=== PATIENT | female | born 1975 | race Caucasian/White ===

== ENCOUNTER 2023-09-22 10:30 | Outpatient (AMB) | payer OTHER, SELFPAY ==
--- NOTE | 2023-09-22 10:36 | MHC.OFFWIV ---
Intake Vital Signs 09/22/23 10:37 Height 5 ft 5 in Weight 183 lb 4 oz BMI 30.5 BP 130/78 Blood Pressure Location Lt brachial Position Sitting Pulse 65 Pulse Source Pulse Oximeter Temp 98.4 F Temp Source Oral Pulse Oximetry (%) 99 Oxygen Delivery Method Room Air Intake Visit Reasons: EP belly button infection 3-4 days (lobby) Intake Note: pt says her stomach was hurt a few days ago and she noticed a clear drainage yesterday and today she today she a thick pus oozing out of her belly button Patient Tobacco Use Status: Former Tobacco user Allergies Latex Allergy (Unknown, Uncoded 09/22/23 10:40) Unknown Nuts Allergy (Unknown, Uncoded 09/22/23 10:40) Unknown pectin Allergy (Unknown, Uncoded 09/22/23 10:40) Unknown HPI HPI Comments History of Present Illness Details 48-year-old female who presents today complaining of discharge erythema her umbilicus she has [facility] Social History (Updated 04/09/22 @ 14:01 by TABITHA Cronin) Housing: House Alcohol intake: never Patient Tobacco Use Status: Former Tobacco user e-Cigarette/Vaping Use: Never Used Second Hand Smoke Exposure: No service: No Current occupational status: employed Current occupation: Clinical application analis Cognitive needs: No Hearing needs: No Vision needs: No Review of Systems Const All systems reviewed & are unremarkable except as noted in HPI and below Physical Exam Vital Signs: Last Vital Signs Temp 98.4 F 09/22/23 10:37 Pulse 65 09/22/23 10:37 BP 130/78 09/22/23 10:37 Pulse Ox 99 09/22/23 10:37 Oxygen Delivery Method Room Air 09/22/23 10:37 BMI result Body Mass Index 30.5 Skin Rashes: rashes noted (Erythema and discharge inside her umbilicus) Assessment & Plan Assessment & Plan (1) Skin infection: Code(s): L08.9 - Local infection of the skin and subcutaneous tissue, unspecified Plan: I sent a culture of the discharge. She will be put on cephalexin for the next 7 days. We will call her after the culture returns Plan See plan Orders: Orders Routine Culture w Gram Stain Today L08.9 - Local infection of the skin and subcutaneous tissue, unspecified Medications: New cephalexin 500 mg PO BID 14 caps 0RF 7 days Coding Level of Care Code Est Pt Level 3 (73732) Diagnoses Skin infection L08.9
[2023-09-22 10:37] VITALS: BP 130/78; PULSE 65; TEMP 36.9; O2SAT 99; BMI 30.5
== END 2023-09-22 11:40 | disposition home or self-care (01) ==
PROVIDERS: PCP Internal Medicine; Visit Provider Physician Assistant Medical
DX: L08.9 Local infection of the skin and subcutaneous tissue, unspecified (principal)
CPT/HCPCS: 99213

== ENCOUNTER 2023-09-22 13:48 | Outpatient (REF) | payer OTHER, SELFPAY | END 2023-09-22 13:49 | disposition home or self-care (01) | LOC: HO.LNP 13:48 | PROVIDERS: Visit Provider Physician Assistant Medical | DX: L08.9 Local infection of the skin and subcutaneous tissue, unspecified (principal) | CPT/HCPCS: 87070; 87205 ==

== ENCOUNTER 2024-01-19 09:23 | Outpatient (AMB) | payer OTHER, SELFPAY ==
--- NOTE | 2024-01-19 09:25 | A.OFFVIS_ITS ---
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 She generally healthy without any major cardiac issues. She states that she has been taking methylphenidate for many years. For this reason, she apparently had an EKG performed a few months back and that had raised a concern of QT prolongation. Hence she is referred here. Otherwise, patient does not have any known cardiac problems and there is no family history of any inherited cardiomyopathy or long QT syndrome or sudden cardiac . Patient herself has no cardiac symptoms. [facility] Family History (Updated 01/19/24 @ 09:30 by Sofia Cast CMA) Maternal Aunt Heart disease Social History (Updated 01/19/24 @ 09:30 by Sofia Cast CMA) Housing: House Alcohol intake: current Comment: Social Patient Tobacco Use Status: Former Tobacco user e-Cigarette/Vaping Use: Never Used Second Hand Smoke Exposure: No service: No Current occupational status: employed Current occupation: Clinical application analis Cognitive needs: No Hearing needs: No Vision needs: No Review of Systems Const Denies chills, Denies daytime sleepiness, Denies fatigue, Denies fever(s), Denies poor appetite, Denies snoring, Denies stops breathing during sleep, Denies weakness, Denies weight gain and Denies weight loss Eyes Denies loss of vision ENT Denies dizziness and Denies hearing loss Card Denies chest pain, Denies irregular heart rhythm, Denies claudication, Denies leg edema, Denies lightheadedness, Denies palpitations, Denies dyspnea on exertion and Denies orthopnea Resp Denies cough, Denies excessive phlegm production, Denies dyspnea on exertion, Denies snoring and Denies wheezing GI Denies abdominal pain, Denies hematochezia, Denies change in bowel habits, Denies nausea and Denies vomiting Denies urinary frequency and Denies dysuria Musc Denies arthralgias, Denies muscle weakness, Denies numbness and Denies other Skin/Breast Denies nail changes and Denies rash Neuro Denies Abnormal speech present, Denies dizziness, Denies loss of vision, Denies memory loss, Denies numbness and Denies weakness Psych Denies depression and Denies memory loss Endo Denies fatigue and Denies palpitations Tyler/Lymph Denies easy bruising Aller/Immun Denies wheezing Physical Exam Vital Signs: Last Vital Signs Pulse 73 01/19/24 09:27 BP 120/84 01/19/24 09:27 BMI result Body Mass Index 30.3 Const General: comfortable and no acute distress Orientation/consciousness: patient oriented x3 HEENT Other: Unremarkable Head: Yes normal to inspection Neck Neck: Yes normal visual inspection Chest Chest palpation & inspection: normal inspection of the chest Resp Auscultation: clear to auscultation bilaterally Cardio Palpation: normal PMI Heart sounds: S1 normal heart sound present, S2 normal heart sound present, no gallops, no murmurs and no rubs GI Palpation (GI): Soft to palpation Back/Spine/Pelvis Other: unremarkable Skin General skin exam: no rashes or lesions noted Neuro General: patient oriented x3 Speech: No Abnormal speech present Extrem General: Yes normal to inspection Psych Mental Status: mental status grossly normal Office Procedures EKG Details: EKG with sinus rhythm at 63/Min; borderline criteria for LVH vs normal variant; possible left atrial enlargement; normal CO and corrected QT. corrected QT value is 454 milliseconds. [id number], Complete Assessment & Plan Assessment & Plan (1) Abnormal EKG: Code(s): R94.31 - Abnormal electrocardiogram [ECG] [EKG] Category: Medical Plan Patient has been sent for evaluation of prolonged QT. However, today's QT/corrected QT are completely normal. In a prior [facility] EKG from June of 2023, corrected QT was listed as 490 milliseconds. However, apparently patient was taking antihistamines at that time which might have been the reason for the prolongation. After the EKG, she states that she stopped those medications. Overall, she may have a propensity for QT prolongation in the future. If any QT prolonging drugs or to be started, then EKG will need to be closely followed. We discussed about this today- including [id number] medications like antihistamines today. She understands. With regard to possible LVH, unclear if it is just normal variant versus true finding. Blood pressure however looks completely normal at 120/84 mmHg and she has got no symptoms or signs otherwise. No specific meds for now. Coding Level of Care Code New Pt Level 3 (68308) Diagnoses Abnormal EKG R94.31 CPT Codes EKG - CPT: 16335-[id number], Complete ([id number])
[2024-01-19 09:27] VITALS: BP 120/84; PULSE 73; BMI 30.3
== END 2024-01-19 10:03 | disposition home or self-care (01) ==
PROVIDERS: PCP Internal Medicine; Visit Provider Internal Medicine
DX: R94.31 Abnormal electrocardiogram [ECG] [EKG] (principal)
CPT/HCPCS: 93010; 99203

== ENCOUNTER → 2024-01-19 09:23 | Outpatient (BNVA) | payer OTHER, SELFPAY | PROVIDERS: PCP Internal Medicine; Visit Provider Internal Medicine | DX: R94.31 Abnormal electrocardiogram [ECG] [EKG] (principal) | CPT/HCPCS: 93005 ==

== ENCOUNTER 2024-11-15 13:48 | Outpatient (AMB) | payer OTHER, SELFPAY ==
--- NOTE | 2024-11-15 13:55 | MHC.PC.OV ---
Vital Signs 11/15/24 13:56 Height 5 ft 5 in Weight 173 lb 8 oz BMI 28.9 BP 124/74 Blood Pressure Location Lt brachial Position Sitting Pulse 88 Pulse Source Pulse Oximeter Pulse Oximetry (%) 92 Oxygen Delivery Method Room Air Intake Visit Reasons: annual exam/alec Dr Chun Gynaecological Oncologist Required: No Accompanied by: Self / Same As Patient Allergies Latex Allergy (Unknown, Uncoded 11/15/24 14:09) Unknown Nuts Allergy (Unknown, Uncoded 11/15/24 14:09) Unknown pectin Allergy (Unknown, Uncoded 11/15/24 14:09) Unknown Medication List - Last Reconciled 11/15/24 by Alyssa Win PA-C albuterol sulfate 90 mcg/actuation (ProAir HFA) 2 puffs inhalation Q4-6H PRN bupropion HCl XL 150 mg PO QAM lorazepam 0.5 mg PO BID PRN methylphenidate HCl 20 mg PO BID montelukast 10 mg PO DAILY Tobacco use date assessed: 11/15/24 Dental Screening Dental Screen Date: 11/15/24 Did you have a dental visit in the last 12 months?: Yes Did you have a dental problem in the last 6 months where you did not have access to dental care?: No Was dental information given to patient?: Patient has dentist HPI annual exam/alec Dr Chun HPI Details 49-year-old female with no relevant past medical history coming in for transfer of care.? Patient has not been seen in 3 years. Presenting with concerns relating to menopause and depression. She has been experiencing symptoms likely related to menopause over the 17 months. She has been without a period for 17 months as well. The patient is currently prescribed bupropion for depression and reports general stability of symptoms with no worsening. She confirmed a recent mammogram was completed last January and her last colonoscopy was about two years ago. Mammogram: January 2024 Eye exam: Yearly Pap smear: Referral was placed to gynecology Colonoscopy: Completed 5-6 years ago for gastroparesis. [facility] Surgical History S/P tonsillectomy History of total right knee replacement Family History Maternal Aunt Heart disease Father Leukemia Social History Housing: House Alcohol intake: current Comment: Social Patient Tobacco Use Status: Former Tobacco user e-Cigarette/Vaping Use: Never Used Second Hand Smoke Exposure: No service: No Current occupational status: employed Current occupation: Clinical application analis Cognitive needs: No Hearing needs: No Vision needs: No Questionnaire PHQ-9 Over the last 2 weeks, how often have you been bothered by any of the following problems? 1. Little interest or pleasure in doing things: several days 2. Feeling down, depressed, or hopeless: more than half the days 3. Trouble falling or staying asleep, or sleeping too much: more than half the days 4. Feeling tired or having little energy: more than half the days 5. Poor appetite or overeating: not at all 6. Feeling bad about yourself - or that you are a failure or have let yourself or your family down: several days 7. Trouble concentrating on things, such as reading the newspaper or watching television: several days 8. Moving or speaking so slowly that other people could have noticed. Or the opposite - being so fidgety or restless that you have been moving around a lot more than usual: not at all 9. Thoughts that you would be better off or of hurting yourself in some way: not at all Total score: 9 Depression Screening Interpretation: Positive Depression Screening Follow-up: Existing condition and In treatment Depression Screening Done: Yes 69600 - PHQ-9 Billing: Yes Source: Developed by Drs. Yanick Alvarez, Zuly Sorto, Prabhjot Rivera and colleagues, with an educational belgica from [employer]. Thrive Questionnaire Date Thrive assessed: 11/15/24 I am a: Patient What is your living situation today?: I have a steady place to live Within the past 12 months, did the food you bought not last and you didn't have the money to get more?: Never true Within the past 12 months, did you worry whether your food would run out before you got money to buy more?: Never true Do you have trouble paying for medicines?: No Do you have trouble getting transportation to medical appointments?: No Do you have trouble paying your heating and electricity bill?: No Do you have trouble taking care of your child, family member or friend?: No Do you have trouble with day-to-day activities such as bathing, preparing meals, shopping, managing finances, etc.?: No Are you currently unemployed and looking for a job?: Yes Are you interested in more education?: I choose not to answer this question Please select the resources that you would like help with: None Currently or been in a relationship where the following occur: No concerns reported THRIVE Score: 0 AUDIT C Alcohol Use Questionnaire (AUDIT-C) 1. How often do you have a drink containing alcohol?: 2-3 times a week 2. How many drinks containing alcohol do you have on a typical day when you are drinking?: 3 or 4 3. How often do you have six or more drinks on one occasion?: Monthly Total Score: 6 HAFSA-7 AMB Questionnaire HAFSA-7 Date HAFSA - 7 assessed: 11/15/24 Feeling nervous, anxious, or on edge: 2 = More than half the days Not being able to stop or control worryin = Several days Worrying too much about different things: 1 = Several days Trouble relaxin = Several days Being so restless that it is hard to sit still: 0 = Not at all Becoming easily annoyed or irritable: 1 = Several days Feeling afraid as if something awful might happen: 0 = Not at all Total HAFSA-7 score (0-4 normal; 5-9 mild; 10-14 moderate; 15-21 severe): 6 Source: Developed by Drs. Yanick Alvarez, Zuly Sorto, Prabhjot Rivera and colleagues, with an educational belgica from [employer]. HAFSA-7 Assessment Billing HAFSA-7 Assessment Tool: HAFSA-7 Assessment 02602 Review of Systems Const Denies body aches, Denies chills, Denies fever(s), Denies headache(s) and Denies poor appetite Eyes Reports no additional complaints and Reports requires corrective lenses ENT Denies dysphagia, Denies dizziness, Denies headache(s) and Denies odynophagia Card Denies chest pain, Denies syncope, Denies edema, Denies irregular heart rhythm, Denies lightheadedness and Denies dyspnea Resp Denies cough and Denies dyspnea GI Denies abdominal pain, Denies constipation, Denies dysphagia, Denies diarrhea, Denies nausea, Denies odynophagia and Denies vomiting Reports no additional complaints Musc Reports no additional complaints and Denies abnormal gait Skin/Breast Reports system reviewed and no additional complaints, except as documented Neuro Denies abnormal gait, Denies dizziness, Denies syncope and Denies headache(s) Psych Reports no additional complaints Physical exam (Primary Care) Vital Signs: Last Vital Signs Pulse 88 11/15/24 13:56 BP 124/74 11/15/24 13:56 Pulse Ox 92 11/15/24 13:56 Oxygen Delivery Method Room Air 11/15/24 13:56 BMI result Body Mass Index 28.9 Tobacco/Smoking Status: Tobacco use Status Tobacco use date assessed 11/15/24 11/15/24 14:01 Patient Tobacco Use Status Former Tobacco user 11/15/24 14:01 e-Cigarette/Vaping Use Never Used 11/15/24 14:01 PHQ-9: PHQ-9 Score PHQ-9: Total score 9 11/15/24 14:20 Depression Screening Interpretation: Positive Depression Screening Follow-up: Existing condition and In treatment Thrive Assessment: Date of Thrive Assessment Date Thrive assessed 11/15/24 11/15/24 14:01 Currently or been in a relationship where the following occur: No concerns reported Const General: cooperative, healthy appearing, comfortable and no acute distress Orientation/consciousness: patient oriented x3 HENMT Head: Yes normocephalic Ears: hearing grossly normal bilaterally, external ears normal, TM's normal bilaterally and EAC's normal General nose exam: Normal external nose present Face and sinus: Yes normal facial exam and Yes sinuses nontender Mouth: Normal oral and palatal mucosa present and tongue normal Throat: Yes posterior oropharynx normal Eyes General: appearance normal, both eyes and all related structures Conjunctivae: conjunctivae normal Pupils: Equal, round and reactive pupils present EOM: EOMs intact bilaterally and No Nystagmus present Neck Neck: Yes normal visual inspection, Yes full ROM and Yes no lymphadenopathy Thyroid: diffusely enlarged (Nontender) and no warm Chest Chest palpation & inspection: normal inspection of the chest Resp Effort & Inspection: normal respiratory effort Auscultation: clear to auscultation bilaterally, no crackles, no rales, no rhonchi, no wheezes and breath sounds present Cardio Rate: regular rate Rhythm: regular rhythm Peripheral pulses: radial pulses present and dorsalis pedis present GI Inspection: Yes normal to inspection and No Abdominal wall edema Palpation (GI): Soft to palpation, not firm and nontender Auscultation: normal bowel sounds Rectal Exam - Female: deferred General: Yes no CVA tenderness Back/Spine/Pelvis Back: no CVA tenderness Skin General skin exam: no rashes or lesions noted Neuro General: patient oriented x3 Cranial nerves: Yes Equal, round and reactive pupils present, Yes Midline tongue present, Yes Ability to bilaterally elevate shoulders present and No Nystagmus present Gait exam (Neuro): Normal gait present Extrem General: Yes normal to inspection, Yes full ROM, No no pedal edema and No edema Psych Speech and movement: Normal speech and movement present Affect: normal affect Insight: Good insight present (Psych) Judgement: Good judgement present (Psych) Coding Level of Care Code Est Pt Prev Care 40-64y(37082) Diagnoses Annual physical exam Z00.00 Mild intermittent asthma without complication J45.20 Asthma complication type: uncomplicated Asthma persistence: intermittent Asthma severity: mild Other specified attention deficit hyperactivity disorder (ADHD) F90.8 Attention deficit-hyperactivity disorder type: other specified Anxiety F41.9 Sylvie-menopausal N95.1 Enlarged thyroid E04.9 Additional Codes HAFSA-7 Assessment Billing - HAFSA-7 Assessment Tool: HAFSA-7 Assessment 77357 ([id number]) PHQ-9 - 41812 - PHQ-9 Billing: Yes ([id number]) Assessment & Plan Assessment & Plan (1) Annual physical exam: Code(s): Z00.00 - Encounter for general adult medical examination without abnormal findings Category: Medical Plan: Patient is up-to-date on all recommended routine screenings and vaccinations for her age. She is unsure when her next colonoscopy would be due given her gastroparesis she has been repeating every 5 years. Referral was placed to gynecology today for Pap smears. I ordered for updated blood work and patient will follow up in 3 months to review blood work and renew lorazepam prescription. Advised patient to follow up sooner if needed. (2) Asthma: Code(s): J45.909 - Unspecified asthma, uncomplicated Category: Medical Qualifiers: Asthma complication type: uncomplicated Asthma persistence: intermittent Asthma severity: mild Qualified Code(s): J45.20 - Mild intermittent asthma, uncomplicated Plan: Asthma currently controlled on present medications. Continue on montelukast daily in albuterol as needed.. Avoid triggers such as allergies. (3) ADHD: Comment: Jarocho Norman every 3 months Code(s): F90.9 - Attention-deficit hyperactivity disorder, unspecified type Category: Medical Qualifiers: Attention deficit-hyperactivity disorder type: other specified Qualified Code(s): F90.8 - Attention-deficit hyperactivity disorder, other type Plan: Patient is on methylphenidate from her psychiatrist for this concern and feels good on this medication. (4) Anxiety: Comment: Jarocho Norman every 3 months Code(s): F41.9 - Anxiety disorder, unspecified Category: Medical Plan: Patient having history of anxiety she does use lorazepam as needed for anxiety as well as Wellbutrin. She was offered counseling today which was declined by the patient. Continue on current medication regimen. I did speak with the patient and discussed while on lorazepam she needs to follow with the office every 3 months to maintain this prescription. (5) Sylvie-menopausal: Code(s): N95.1 - Menopausal and female climacteric states Category: Medical Plan: Patient believes she may be in menopause. Ordered for blood work for further evaluation and referral was placed to gynecology as well. (6) Enlarged thyroid: Code(s): E04.9 - Nontoxic goiter, unspecified Category: Medical Plan: On exam patient having mildly enlarged thyroid nontender to palpation and not warm. Plan to obtain thyroid labs and thyroid ultrasound ordered as well. Plan This note was constructed using voice recognition software. While every effort has been made to ensure accuracy and dry mixer, still areas may have been included sometimes these areas may affect the content or meeting of the given symptoms. Total time spent caring for the patient today was 30 minutes. This includes time spent before the visit reviewing the chart, time spent during the visit, and time spent after the visit and documentation. Patient was informed and verbally consented to the use of an ambient scribe for clinic note documentation during this visit. Orders: Orders Lutenizing Hormone Today N95.1 - Menopausal and female climacteric states Comprehensive Met. Panel Today Z00.00 - Encounter for general adult medical examination without abnormal findings Free T4 (Free Thyroxine) Today Z00.00 - Encounter for general adult medical examination without abnormal findings US thyroid Today E04.9 - Nontoxic goiter, unspecified Follicle Stimulating Hormone Today N95.1 - Menopausal and female climacteric states Estrogen Today N95.1 - Menopausal and female climacteric states Complete Blood Count Auto Diff Today Z00.00 - Encounter for general adult medical examination without abnormal findings TSH reflex Free T4 Today Z00.00 - Encounter for general adult medical examination without abnormal findings Vitamin B12 and Folate Today Z00.00 - Encounter for general adult medical examination without abnormal findings Vitamin D 25-OH Total Today Z00.00 - Encounter for general adult medical examination without abnormal findings Lipid Panel Today Z13.220 - Encounter for screening for lipoid disorders Referrals SECURITY SERGEANT Referral N95.1 - Menopausal and female climacteric states, Z12.4 - Encounter for screening for malignant neoplasm of cervix Gastroenterology Referral Z12.11 - Encounter for screening for malignant neoplasm of colon Medications: New epinephrine (EpiPen) for 2 doses 0.3 mg (0.3 mL) IM Q10M PRN 2 ea 0RF anaphylaxis Changed From albuterol sulfate 90 mcg/actuation (ProAir HFA) 2 puffs inhalation Q4-6H PRN 8.5 grams 8RF bronchospasm To albuterol sulfate 90 mcg/actuation 2 puffs inhalation Q4-6H PRN 8.5 grams 8RF bronchospasm Refilled montelukast Patient needs to be seen in office for further refills 10 mg PO DAILY 30 tabs 0RF lorazepam 0.5 mg PO BID PRN 60 tabs 0RF anxiety
[2024-11-15 13:56] VITALS: BP 124/74; PULSE 88; O2SAT 92; BMI 28.9
== END 2024-11-15 14:41 | disposition home or self-care (01) ==
LOC: HO.HMCH 13:49
PROVIDERS: PCP Internal Medicine
DX: Z00.00 Encounter for general adult medical examination without abnormal findings (principal); J45.20 Mild intermittent asthma, uncomplicated; F90.8 Attention-deficit hyperactivity disorder, other type; F41.9 Anxiety disorder, unspecified; N95.1 Menopausal and female climacteric states; E04.9 Nontoxic goiter, unspecified

== ENCOUNTER → 2024-11-15 13:48 | Outpatient (BNVA) | payer OTHER, SELFPAY | PROVIDERS: PCP Internal Medicine | DX: Z00.00 Encounter for general adult medical examination without abnormal findings (principal); F32.A Depression, unspecified; J45.20 Mild intermittent asthma, uncomplicated; F90.8 Attention-deficit hyperactivity disorder, other type; F41.9 Anxiety disorder, unspecified; N95.1 Menopausal and female climacteric states; E04.9 Nontoxic goiter, unspecified | CPT/HCPCS: 96127 ==

== ENCOUNTER 2025-02-18 13:53 | Outpatient (AMB) | payer OTHER, SELFPAY ==
--- NOTE | 2025-02-18 14:02 | A.OFFPC_ITS ---
Vital Signs 02/18/25 14:05 Height 5 ft 5 in Weight 178 lb 2 oz BMI 29.6 BP 118/66 Blood Pressure Location Lt brachial Position Sitting Pulse 68 Pulse Source Pulse Oximeter Pulse Oximetry (%) 98 Oxygen Delivery Method Room Air Intake Visit Reasons: f/u medication Board Certified Family Physician Required: No Accompanied by: Self / Same As Patient Allergies Latex Allergy (Unknown, Uncoded 02/18/25 14:06) Unknown Nuts Allergy (Unknown, Uncoded 02/18/25 14:06) Unknown pectin Allergy (Unknown, Uncoded 02/18/25 14:06) Unknown Medication List - Last Reconciled 02/18/25 by Alyssa Win PA-C albuterol sulfate 90 mcg/actuation 2 puffs inhalation Q4-6H PRN bupropion HCl XL 150 mg PO QAM epinephrine (EpiPen) 0.3 mg (0.3 mL) IM Q10M PRN lorazepam 0.5 mg PO BID PRN methylphenidate HCl 20 mg PO BID montelukast 10 mg PO DAILY Tobacco use date assessed: 02/18/25 Dental Screening Dental Screen Date: 02/18/25 Did you have a dental visit in the last 12 months?: Yes Did you have a dental problem in the last 6 months where you did not have access to dental care?: No Was dental information given to patient?: No HPI f/u medication HPI Details 50-year-old female with past medical his tory of asthma, ADHD, anxiety, enlarged thyroid last seen 11/2024 coming in for follow up. The patient reports stable asthma, using albuterol as needed. Anxiety and Depression is Managed by a psychiatrist with medications including Ritalin, and Wellbutrin. Lorazepam is used primarily at night for sleep, with occasional daytime use. Ultrasound was scheduled for thyroid, but follow-up information was not received. Blood work was completed at [facility], but results have not been received yet. She has no acute concerns today. [facility] Surgical History S/P tonsillectomy History of total right knee replacement Family History Maternal Aunt Heart disease Father Leukemia Social History Housing: House Alcohol intake: current Comment: Social Patient Tobacco Use Status: Former Tobacco user e-Cigarette/Vaping Use: Never Used Second Hand Smoke Exposure: No service: No Current occupational status: employed Current occupation: Clinical application analis Cognitive needs: No Hearing needs: No Vision needs: No Questionnaire Thrive Questionnaire Date Thrive assessed: 02/18/25 I am a: Patient What is your living situation today?: I have a steady place to live Within the past 12 months, did the food you bought not last and you didn't have the money to get more?: Never true Within the past 12 months, did you worry whether your food would run out before you got money to buy more?: Never true Do you have trouble paying for medicines?: No Do you have trouble getting transportation to medical appointments?: No Do you have trouble paying your heating and electricity bill?: No Do you have trouble taking care of your child, family member or friend?: No Do you have trouble with day-to-day activities such as bathing, preparing meals, shopping, managing finances, etc.?: No Are you currently unemployed and looking for a job?: Yes Are you interested in more education?: I choose not to answer this question Please select the resources that you would like help with: None Currently or been in a relationship where the following occur: No concerns reported THRIVE Score: 0 HAFSA-7 AMB Questionnaire HAFSA-7 Date HAFSA - 7 assessed: 02/18/25 Source: Developed by Drs. Yanick Alvarez, Zuly Sorto, Prabhjot Rivera and colleagues, with an educational belgica from [employer]. Review of Systems Const Denies body aches, Denies chills, Denies fever(s), Denies headache(s) and Denies poor appetite Eyes Reports no additional complaints ENT Denies dizziness and Denies headache(s) Card Denies chest pain, Denies lightheadedness and Denies dyspnea Resp Denies dyspnea GI Denies constipation, Denies diarrhea, Denies nausea and Denies vomiting Musc Reports no additional complaints and Denies abnormal gait Skin/Breast Reports system reviewed and no additional complaints, except as documented Neuro Denies abnormal gait, Denies dizziness and Denies headache(s) Psych Reports no additional complaints Physical exam (Primary Care) Vital Signs: Last Vital Signs Pulse 68 02/18/25 14:05 BP 118/66 02/18/25 14:05 Pulse Ox 98 02/18/25 14:05 Oxygen Delivery Method Room Air 02/18/25 14:05 BMI result Body Mass Index 29.6 Tobacco/Smoking Status: Tobacco use Status Tobacco use date assessed 02/18/25 02/18/25 14:05 Patient Tobacco Use Status Former Tobacco user 02/18/25 14:05 e-Cigarette/Vaping Use Never Used 02/18/25 14:05 Thrive Assessment: Date of Thrive Assessment Date Thrive assessed 02/18/25 02/18/25 14:05 Currently or been in a relationship where the following occur: No concerns reported Const General: cooperative, healthy appearing, comfortable and no acute distress Orientation/consciousness: patient oriented x3 HENMT Head: Yes normocephalic Ears: hearing grossly normal bilaterally General nose exam: Normal external nose present Eyes General: appearance normal, both eyes and all related structures Conjunctivae: conjunctivae normal Neck Neck: Yes full ROM and Yes no lymphadenopathy Resp Effort & Inspection: normal respiratory effort Auscultation: clear to auscultation bilaterally, no crackles, no rales, no rhonchi and no wheezes Cardio Rate: regular rate Rhythm: regular rhythm Skin General skin exam: no rashes or lesions noted Neuro General: patient oriented x3 Gait exam (Neuro): Normal gait present Extrem General: Yes normal to inspection, Yes full ROM and No edema Psych Affect: normal affect Attitude: cooperative Insight: Good insight present (Psych) Judgement: Good judgement present (Psych) Coding Level of Care Code Est Pt Level 3 (30128) Diagnoses Mild intermittent asthma without complication J45.20 Asthma complication type: uncomplicated Asthma persistence: intermittent Asthma severity: mild Other specified attention deficit hyperactivity disorder (ADHD) F90.8 Attention deficit-hyperactivity disorder type: other specified Anxiety F41.9 Enlarged thyroid E04.9 Assessment & Plan Assessment & Plan (1) Asthma: Code(s): J45.909 - Unspecified asthma, uncomplicated Category: Medical Qualifiers: Asthma complication type: uncomplicated Asthma persistence: intermittent Asthma severity: mild Qualified Code(s): J45.20 - Mild intermittent asthma, uncomplicated Plan: Asthma currently controlled on present medications. Continue on montelukast daily in albuterol as needed. Avoid triggers such as allergies. (2) ADHD: Comment: Jarocho Norman every 3 months Code(s): F90.9 - Attention-deficit hyperactivity disorder, unspecified type Category: Medical Qualifiers: Attention deficit-hyperactivity disorder type: other specified Qualified Code(s): F90.8 - Attention-deficit hyperactivity disorder, other type Plan: Patient is on methylphenidate from her psychiatrist for this concern and feels good on this medication. (3) Anxiety: Comment: Jarocho Norman every 3 months Code(s): F41.9 - Anxiety disorder, unspecified Category: Medical Plan: Patient having history of anxiety she does use lorazepam as needed for anxiety as well as Wellbutrin. She was offered counseling today which was declined by the patient. Continue on current medication regimen. I did speak with the patient and discussed while on lorazepam she needs to follow with the office every 3 months to maintain this prescription. (4) Enlarged thyroid: Code(s): E04.9 - Nontoxic goiter, unspecified Category: Medical Plan: Patient missed her ultrasound appointment and order was printed and given to the patient today to bring to [facility] as it is more convenient for her. She did obtain the blood work and we will reach out to [facility] for the results. Plan The patient will continue using albuterol as needed for asthma management. Psychiatric medications will continue under the psychiatrist's supervision. A refill for lorazepam will be provided, and its use will be monitored. The thyroid ultrasound will be reordered, and the patient will be instructed to have it done at the [facility]. Efforts will be made to obtain the blood work results from [facility]. This note was constructed using voice recognition software. While every effort has been made to ensure accuracy and ornamental iron erector, still areas may have been included sometimes these areas may affect the content or meeting of the given symptoms. Total time spent caring for the patient today was 20 minutes. This includes time spent before the visit reviewing the chart, time spent during the visit, and time spent after the visit and documentation. Patient was informed and verbally consented to the use of an ambient scribe for clinic note documentation during this visit. Orders: Orders US thyroid Today E04.9 - Nontoxic goiter, unspecified Medications: Refilled lorazepam 0.5 mg PO BID PRN 60 tabs 0RF anxiety
[2025-02-18 14:05] VITALS: BP 118/66; PULSE 68; O2SAT 98; BMI 29.6
== END 2025-02-18 14:31 | disposition home or self-care (01) ==
LOC: HO.HMCH 13:53
DX: J45.20 Mild intermittent asthma, uncomplicated (principal); F90.8 Attention-deficit hyperactivity disorder, other type; F41.9 Anxiety disorder, unspecified; E04.9 Nontoxic goiter, unspecified

== ENCOUNTER 2025-06-17 15:56 | Outpatient (AMB) | payer OTHER, SELFPAY ==
--- NOTE | 2025-06-17 16:03 | A.OFFPC_ITS ---
Vital Signs 06/17/25 16:04 06/17/25 17:02 Height 5 ft 5 in Weight 179 lb 8 oz BMI 29.9 BP 130/90 H 130/86 Blood Pressure Location Lt brachial Lt brachial Position Sitting Sitting Pulse 89 Pulse Source Pulse Oximeter Temp 96.9 F Temp Source Temporal Artery Scan Pulse Oximetry (%) 100 Oxygen Delivery Method Room Air Intake Visit Reasons: 3 mo f/u anxiety Intake Note: Patient is here to follow up on Anxiety. Sex Therapist Required: No Bicycle Ii Assembler: Not Required per policy Accompanied by: Self / Same As Patient Allergies Latex Allergy (Unknown, Uncoded 06/17/25 16:03) Unknown Nuts Allergy (Unknown, Uncoded 06/17/25 16:03) Unknown pectin Allergy (Unknown, Uncoded 06/17/25 16:03) Unknown Medication List - Last Reconciled 06/17/25 by Alyssa Win PA-C albuterol sulfate 90 mcg/actuation 2 puffs inhalation Q4-6H PRN bupropion HCl XL 150 mg PO QAM epinephrine (EpiPen) 0.3 mg (0.3 mL) IM Q10M PRN lorazepam 0.5 mg PO BID PRN methylphenidate HCl 20 mg PO BID montelukast 10 mg PO DAILY Tobacco use date assessed: 06/17/25 Dental Screening Dental Screen Date: 02/18/25 HPI 3 mo f/u anxiety HPI Details 50-year-old female with past medical his tory of asthma, ADHD, anxiety, enlarged thyroid last seen 02/2025 coming in for follow up. Patient tells us today overall she is feeling generally well and has no acute concerns. She does have an appointment with gynecology but not until next year for postmenopausal symptoms. She mentions having decreased energy and does have a history of a negative sleep study in the past. She believes it may be related to her estrogen and most recent blood work did not draw the estrogen although it was ordered. Her most recent liver tests are elevated. [facility] Medical History (Updated 06/17/25 @ 17:02 by Alyssa Win PA-C) Sylvie-menopausal Surgical History S/P tonsillectomy History of total right knee replacement Family History Maternal Aunt Heart disease Father Leukemia Social History Housing: House Alcohol intake: current Alcohol intake frequency: a few times a week Comment: Social Patient Tobacco Use Status: Former Tobacco user e-Cigarette/Vaping Use: Never Used Second Hand Smoke Exposure: Yes service: No Current occupational status: employed Current occupation: Clinical application analis Cognitive needs: No Hearing needs: No Vision needs: No Questionnaire PHQ-9 Over the last 2 weeks, how often have you been bothered by any of the following problems? 1. Little interest or pleasure in doing things: not at all 2. Feeling down, depressed, or hopeless: not at all 3. Trouble falling or staying asleep, or sleeping too much: not at all 4. Feeling tired or having little energy: not at all 5. Poor appetite or overeating: not at all 6. Feeling bad about yourself - or that you are a failure or have let yourself or your family down: not at all 7. Trouble concentrating on things, such as reading the newspaper or watching television: not at all 8. Moving or speaking so slowly that other people could have noticed. Or the opposite - being so fidgety or restless that you have been moving around a lot more than usual: not at all 9. Thoughts that you would be better off or of hurting yourself in some way: not at all Total score: 0 Depression Screening Interpretation: Negative Depression Screening Done: Yes Source: Developed by Drs. Yanick Alvarez, Zuly Sorto, Prabhjot Rivera and colleagues, with an educational belgica from [employer]. Thrive Questionnaire Date Thrive assessed: 11/15/24 I am a: Patient What is your living situation today?: I have a steady place to live Within the past 12 months, did the food you bought not last and you didn't have the money to get more?: Never true Within the past 12 months, did you worry whether your food would run out before you got money to buy more?: Never true Do you have trouble paying for medicines?: No Do you have trouble getting transportation to medical appointments?: No Do you have trouble paying your heating and electricity bill?: No Do you have trouble taking care of your child, family member or friend?: No Do you have trouble with day-to-day activities such as bathing, preparing meals, shopping, managing finances, etc.?: No Are you currently unemployed and looking for a job?: Yes Are you interested in more education?: I choose not to answer this question Please select the resources that you would like help with: None Currently or been in a relationship where the following occur: No concerns reported THRIVE Score: 0 HAFSA-7 AMB Questionnaire HAFSA-7 Date HAFSA - 7 assessed: 06/17/25 Feeling nervous, anxious, or on edge: 0 = Not at all Not being able to stop or control worryin = Not at all Worrying too much about different things: 0 = Not at all Trouble relaxin = Not at all Being so restless that it is hard to sit still: 0 = Not at all Becoming easily annoyed or irritable: 0 = Not at all Feeling afraid as if something awful might happen: 0 = Not at all Total HAFSA-7 score (0-4 normal; 5-9 mild; 10-14 moderate; 15-21 severe): 0 Source: Developed by Drs. Yanick Alvarez, Zuly Sorto, Prabhjot Rivera and colleagues, with an educational belgica from [employer]. Review of Systems Const Denies body aches, Denies chills, Reports fatigue, Denies fever(s), Denies he adache(s) and Denies poor appetite Eyes Reports no additional complaints ENT Denies dizziness and Denies headache(s) Card Denies chest pain, Denies lightheadedness and Denies dyspnea Resp Denies dyspnea GI Denies abdominal pain, Denies nausea and Denies vomiting Reports no additional complaints Musc Reports no additional complaints and Denies abnormal gait Skin/Breast Reports system reviewed and no additional complaints, except as documented Neuro Denies abnormal gait, Denies dizziness and Denies headache(s) Psych Reports no additional complaints Endo Reports fatigue Physical exam (Primary Care) Vital Signs: Last Vital Signs Temp 96.9 F 06/17/25 16:04 Pulse 89 06/17/25 16:04 BP 130/90 H 06/17/25 16:04 Pulse Ox 100 06/17/25 16:04 Oxygen Delivery Method Room Air 06/17/25 16:04 BMI result Body Mass Index 29.9 Tobacco/Smoking Status: Tobacco use Status Tobacco use date assessed 06/17/25 06/17/25 16:08 Patient Tobacco Use Status Former Tobacco user 06/17/25 16:08 e-Cigarette/Vaping Use Never Used 06/17/25 16:08 PHQ-9: PHQ-9 Score PHQ-9: Total score 0 06/17/25 16:21 Depression Screening Interpretation: Negative Thrive Assessment: Date of Thrive Assessment Date Thrive assessed 11/15/24 06/17/25 16:08 Currently or been in a relationship where the following occur: No concerns reported Const General: cooperative, healthy appearing, comfortable and no acute distress Orientation/consciousness: patient oriented x3 HENMT Head: Yes normocephalic Ears: hearing grossly normal bilaterally General nose exam: Normal external nose present Eyes General: appearance normal, both eyes and all related structures Conjunctivae: conjunctivae normal Neck Neck: Yes full ROM and Yes no lymphadenopathy Resp Effort & Inspection: normal respiratory effort Cardio Rate: regular rate Skin General skin exam: no rashes or lesions noted Neuro General: patient oriented x3 Gait exam (Neuro): Normal gait present Extrem General: Yes normal to inspection, Yes full ROM and No edema Psych Affect: normal affect Attitude: cooperative Insight: Good insight present (Psych) Judgement: Good judgement present (Psych) Coding Level of Care Code Est Pt Level 3 (49103) Diagnoses Anxiety F41.9 Enlarged thyroid E04.9 Elevated LFTs R79.89 Postmenopausal Z78.0 Insomnia G47.00 Assessment & Plan Assessment & Plan (1) Anxiety: Comment: Jarocho Norman every 3 months Code(s): F41.9 - Anxiety disorder, unspecified Category: Medical Plan: Continue on lorazepam b.i.d. as needed for anxiety and finds this beneficial. Did discuss with the patient she needs to follow up every 3 months to maintain this prescription (2) Enlarged thyroid: Code(s): E04.9 - Nontoxic goiter, unspecified Category: Medical Plan: Reminded patient about ultrasound reprinted the order (3) Elevated LFTs: Code(s): R79.89 - Other specified abnormal findings of blood chemistry Category: Medical Plan: Plan for repeat blood work and consider abdominal ultrasound if remains elevated. (4) Postmenopausal: Code(s): Z78.0 - Asymptomatic menopausal state Category: Medical Plan: Patient enquiring about estrogen replacement therapy advised to follow up with gynecology for this concern and reminded patient about estrogen blood work. (5) Insomnia: Code(s): G47.00 - Insomnia, unspecified Category: Medical Plan: Plan to trial trazodone for insomnia. Plan This note was constructed using voice recognition software. While every effort has been made to ensure accuracy and security tester, still areas may have been included sometimes these areas may affect the content or meeting of the given symptoms. Total time spent caring for the patient today was 20 minutes. This includes time spent before the visit reviewing the chart, time spent during the visit, and time spent after the visit and documentation. Orders: Orders Liver Panel Today R79.89 - Other specified abnormal findings of blood chemistry Hepatitis B,C Profile Today R79.89 - Other specified abnormal findings of blood chemistry Medications: New trazodone 50 mg PO BEDTIME PRN 90 tabs 0RF insomnia Refilled lorazepam 0.5 mg PO BID PRN 60 tabs 0RF anxiety
[2025-06-17 16:04] VITALS: BP 130/90; PULSE 89; TEMP 36.1; O2SAT 100; BMI 29.9
[2025-06-17 17:02] VITALS: BP 130/86
== END 2025-06-17 16:35 | disposition home or self-care (01) ==
LOC: HO.HMCH 15:57
DX: F41.9 Anxiety disorder, unspecified (principal); E04.9 Nontoxic goiter, unspecified; R79.89 Other specified abnormal findings of blood chemistry; Z78.0 Asymptomatic menopausal state; G47.00 Insomnia, unspecified